=== PATIENT | male | born 1980 | race Caucasian/White ===

== ENCOUNTER 2023-10-03 13:46 | Emergency (ER) | payer OTHER ==
[2023-10-03 14:19] VITALS: BP 135/86; PULSE 78; RESP 18; TEMP 98.3; BMI 29.5
== END 2023-10-03 15:07 | disposition home or self-care (01) ==
LOC: FER 13:46
DX: S60.552A Superficial foreign body of left hand, initial encounter (principal); M79.644 Pain in right finger(s); W45.8XXA Other foreign body or object entering through skin, initial encounter
CPT/HCPCS: 73130-TC-LT-FY; 73130-TC-RT-FY; 99284-25